=== PATIENT | male | born 1960 | race Two or more races ===

== ENCOUNTER 2016-08-09 23:00 | Emergency (ER) | payer BC, OTHER ==
[~2016-08-09] VITALS: Ht 165.1 cm; Wt 88.4 kg
[2016-08-09 23:01] VITALS: BP 185/105
[2016-08-09] MEDS ORDERED: ALLO300T PO (23:29)
[2016-08-10] MEDS ORDERED: KETOROLAC 30 MG/1 ML IM ONE
[2016-08-10] MEDS ORDERED: OXYcodone/APAP 5/325MG TABLET PO ONE
[2016-08-10] MEDS ORDERED: DIAZEPAM 5 MG TABLET PO ONE
[2016-08-10] MEDS ORDERED: DIAZEPAM 5 MG TABLET ONE (00:02)
[2016-08-10] MEDS ORDERED: OXYcodone/APAP 5/325MG TABLET ONE (00:03)
[2016-08-10] MEDS ORDERED: KETOROLAC 30 MG/1 ML ONE (00:03)
== END 2016-08-10 00:42 | disposition home or self-care (01) ==
LOC: ED 23:59
DX: S16.1XXA Strain of muscle, fascia and tendon at neck level, initial encounter (principal); M50.30 Other cervical disc degeneration, unspecified cervical region; X58.XXXA Exposure to other specified factors, initial encounter; Y93.89 Activity, other specified; Y99.8 Other external cause status; Y92.89 Other specified places as the place of occurrence of the external cause
CPT/HCPCS: 72050; 96372; 99284; J1885